=== PATIENT | female | born 1985 | race Caucasian/White ===

== ENCOUNTER → 2021-07-23 | Outpatient (REF) | payer SELFPAY | LOC: M SFHCADAM 16:07 | PROVIDERS: ATTEND Physician Assistant | DX: Z53.20 Procedure and treatment not carried out because of patient's decision for unspecified reasons (principal) ==

== ENCOUNTER → 2021-10-04 | Outpatient (REF) | payer OTHER ==
[2021-10-04 12:33] LABS: BASO % 0.6 % (0.0-1.0); EOS % 0.6 % (0.0-3.0); HEMATOCRIT 42.4 % (36.0-47.0); LYMPH # 1.1 10^3/uL (1.5-5.0); LYMPH % 15.7 % (24.0-44.0); MEAN CORPUSCULAR HEMOGLOBIN 27.3 pg (27.0-33.0); MEAN CORPUSCULAR VOLUME 82.7 fl (80.0-96.0); MONO # 0.7 10^3/uL (0.0-0.8); MONO % 9.6 % (2.0-8.0); NEUTROPHILS # 5.3 10^3/uL (1.5-8.5); NEUTROPHILS % 73.2 % (36.0-66.0); PLATELET COUNT, AUTOMATED 275 10^3/uL (150-450); RED BLOOD COUNT 5.13 10^6/uL (4.00-5.40); WHITE BLOOD COUNT 7.2 10^3/uL (4.0-10.0)
[2021-10-04 15:24] LABS: ALT/SGPT 33 U/L (12-78); BILIRUBIN,TOTAL 0.2 MG/DL (0.2-1.0); BLOOD UREA NITROGEN 14 MG/DL (7-18); CALCIUM LEVEL 9.5 MG/DL (8.5-10.1); CARBON DIOXIDE LEVEL 26 MEQ/L (21-32); CHLORIDE LEVEL 106 MEQ/L (98-107); CHOLESTEROL LEVEL 123 MG/DL (<200); CREATININE FOR GFR 0.54 MG/DL (0.55-1.30); GLOMERULAR FILTRATION RATE > 60.0 (>60); GLUCOSE, FASTING 89 MG/DL (70-100); HDL CHOLESTEROL 41 MG/DL (>40); NON-HDL-C 82 MG/DL; POTASSIUM SERUM 4.4 MEQ/L (3.5-5.1); SODIUM LEVEL 137 MEQ/L (136-145); TRIGLYCERIDES LEVEL 78 MG/DL (<150)
[2021-10-04 15:25] LABS: ALBUMIN 4.3 GM/DL (3.2-5.2); FREE T4 0.95 NG/DL (0.76-1.46); LDL CHOLESTEROL 66 MG/DL (<100); THYROID STIMULATING HORMONE 0.521 uIU/ML (0.358-3.740); TOTAL PROTEIN 7.2 GM/DL (6.4-8.2)
[2021-10-05 09:47] LABS: TOTAL 25(OH) VITAMIN D 30.4 NG/ML (30.0-100.0)
== END ==
LOC: M SFHCADAM 09:42
PROVIDERS: ATTEND Physician Assistant Medical
DX: F41.9 Anxiety disorder, unspecified (principal); F32.0 Major depressive disorder, single episode, mild; Q85.01 Neurofibromatosis, type 1; F17.210 Nicotine dependence, cigarettes, uncomplicated; F51.04 Psychophysiologic insomnia

== ENCOUNTER → 2022-01-15 | Outpatient (CLI) | payer OTHER | LOC: M ADAMS 15:16 | PROVIDERS: ATTEND Physician Assistant Medical | DX: M54.9 Dorsalgia, unspecified (principal) ==

== ENCOUNTER → 2022-09-10 | Outpatient (REF) | payer OTHER | LOC: M SFHCADAM 13:23 | PROVIDERS: ATTEND Physician Assistant Medical | DX: R87.610 Atypical squamous cells of undetermined significance on cytologic smear of cervix (ASC-US) (principal); Z12.4 Encounter for screening for malignant neoplasm of cervix ==

== ENCOUNTER → 2023-07-22 | Outpatient (CLI) | payer OTHER | LOC: M WHC 08:37 | PROVIDERS: ATTEND Physician Assistant Medical | DX: N63.0 Unspecified lump in unspecified breast (principal) ==

== ENCOUNTER 2023-08-25 09:45 | Emergency (ER) | payer OTHER ==
[~2023-08-25] VITALS: Ht 152.4 cm; Wt 56.5 kg
[2023-08-25] MEDS ORDERED: TRAZ1TAB12 PO (09:58)
[2023-08-25] MEDS ORDERED: NAPR-837 PO (09:59)
[2023-08-25] MEDS ORDERED: ALBU6.7H6 INH (10:00)
[2023-08-25 11:31] LABS: BASO # 0.1 10^3/uL (0.0-0.2); BASO % 0.4 % (0.0-1.0); EOS # 0.1 10^3/uL (0.0-0.5); EOS % 0.9 % (0.0-3.0); HEMATOCRIT 36.7 % (36.0-47.0); HEMOGLOBIN 12.5 g/dl (12.0-15.5); LYMPH # 1.6 10^3/uL (1.5-5.0); LYMPH % 13.1 % (24.0-44.0); MEAN CORPUSCULAR HGB CONC 34.1 g/dl (32.0-36.5); MEAN CORPUSCULAR VOLUME 82.3 fl (80.0-96.0); MONO # 0.7 10^3/uL (0.0-0.8); MONO % 6.1 % (2.0-8.0); NEUTROPHILS # 9.4 10^3/uL (1.5-8.5); NEUTROPHILS % 79.1 % (36.0-66.0); PLATELET COUNT, AUTOMATED 244 10^3/uL (150-450); RED BLOOD COUNT 4.46 10^6/uL (4.00-5.40); WHITE BLOOD COUNT 11.9 10^3/uL (4.0-10.0)
[2023-08-25 11:36] LABS: AMPHETAMINES LEVEL URINE NEGATIVE (NEGATIVE)
[2023-08-25 11:37] LABS: BARBITURATES URINE NEGATIVE (NEGATIVE); BENZODIAZEPINES URINE NEGATIVE (NEGATIVE); COCAINE METABOLITE URINE NEGATIVE (NEGATIVE); METHADONE URINE NEGATIVE (NEGATIVE); OPIATES URINE NEGATIVE (NEGATIVE); PHENCYCLIDINE URINE NEGATIVE (NEGATIVE)
[2023-08-25 12:03] LABS: LIPASE 20 U/L (12-53)
[2023-08-25 12:04] LABS: CK-MB VALUE MASS < 1.0 NG/ML (<3.6)
[2023-08-25 12:06] LABS: ALBUMIN 3.9 G/DL (3.2-5.2); ALKALINE PHOSPHATASE 44 U/L (46-116); ALT/SGPT 13 U/L (7.0-40); AST/SGOT 10 U/L (<34); BILIRUBIN,DIRECT 0.2 MG/DL (<0.4); BILIRUBIN,TOTAL 0.6 MG/DL (0.3-1.2); BLOOD UREA NITROGEN 8 MG/DL (9-23); CALCIUM LEVEL 10.1 MG/DL (8.5-10.1); CARBON DIOXIDE LEVEL 22 MMOL/L (20-31); CHLORIDE LEVEL 112 MMOL/L (98-107); CPK CREATINE PHOSPHOKINASE 64 U/L (34-145); CREATININE FOR GFR 0.54 MG/DL (0.55-1.30); GLOMERULAR FILTRATION RATE > 60.0 (>60); GLUCOSE, FASTING 91 MG/DL (60-100); MB/CK RELATIVE INDEX 1.56 (< OR =4); SODIUM LEVEL 140 MMOL/L (136-145); TOTAL PROTEIN 6.4 G/DL (5.7-8.2)
[2023-08-25 12:08] LABS: FREE T4 0.97 NG/DL (0.89-1.76); THYROID STIMULATING HORMONE 0.845 uIU/ML (0.55-4.78)
[2023-08-25 12:12] LABS: HCG, SERUM QUALITATIVE NEGATIVE (NEGATIVE)
[2023-08-25 12:34] LABS: CANNABINOIDS URINE POSITIVE (NEGATIVE)
[2023-08-25] MEDS ORDERED: ISOVUE-370 76% 100ML VIAL As Ordered ONE (13:02)
[2023-08-25 14:51] VITALS: BP 117/66; TEMP 97.6; O2SAT 98
== END 2023-08-25 14:54 | disposition home or self-care (01) ==
LOC: M ED 09:45
DX: F43.0 Acute stress reaction (principal); R07.9 Chest pain, unspecified; J45.909 Unspecified asthma, uncomplicated; F17.200 Nicotine dependence, unspecified, uncomplicated; F12.10 Cannabis abuse, uncomplicated; F10.10 Alcohol abuse, uncomplicated; Z79.52 Long term (current) use of systemic steroids; Z79.899 Other long term (current) drug therapy
CPT/HCPCS: 36415; 71045; 71275; 80048; 80076; 80307; 82550; 82553; 83690; 84439; 84443; 84703; 85025; 93005; 93041; 94760; 99285; Q9967

== ENCOUNTER → 2024-05-18 | Outpatient (REF) | payer OTHER ==
[~2024-05-18] MED LIST: ALBU6.7H6 INH; NAPR-837 PO; TRAZ1TAB12 PO
[2024-05-18 18:02] LABS: BASO % 0.3 % (0.0-1.0); EOS # 0.1 10^3/uL (0.0-0.5); HEMATOCRIT 37.8 % (36.0-47.0); HEMOGLOBIN 12.4 g/dl (12.0-15.5); LYMPH # 2.1 10^3/uL (1.5-5.0); LYMPH % 23.9 % (24.0-44.0); MEAN CORPUSCULAR HGB CONC 32.8 g/dl (32.0-36.5); MEAN CORPUSCULAR VOLUME 82.4 fl (80.0-96.0); MONO # 0.6 10^3/uL (0.0-0.8); MONO % 7.2 % (2.0-8.0); NEUTROPHILS # 5.8 10^3/uL (1.5-8.5); NEUTROPHILS % 67.3 % (36.0-66.0); PLATELET COUNT, AUTOMATED 342 10^3/uL (150-450); RED BLOOD COUNT 4.59 10^6/uL (4.00-5.40); WHITE BLOOD COUNT 8.6 10^3/uL (4.0-10.0)
[2024-05-18 18:29] LABS: ALBUMIN 4.3 G/DL (3.2-5.2); ALKALINE PHOSPHATASE 66 U/L (46-116); ALT/SGPT 14 U/L (7.0-40); AST/SGOT 8 U/L (<34); BILIRUBIN,TOTAL 0.6 MG/DL (0.3-1.2); BLOOD UREA NITROGEN 8 MG/DL (9-23); CALCIUM LEVEL 11.3 MG/DL (8.5-10.1); CARBON DIOXIDE LEVEL 26 MMOL/L (20-31); CHLORIDE LEVEL 110 MMOL/L (98-107); CREATININE FOR GFR 0.66 MG/DL (0.55-1.30); GLOMERULAR FILTRATION RATE > 60.0 (>60); GLUCOSE, FASTING 107 MG/DL (60-100); POTASSIUM SERUM 5.2 MMOL/L (3.5-5.1); SODIUM LEVEL 140 MMOL/L (136-145); TOTAL PROTEIN 7.5 G/DL (5.7-8.2)
[2024-05-18 18:30] LABS: FREE T4 1.11 NG/DL (0.89-1.76)
[2024-05-18 18:31] LABS: TOTAL 25(OH) VITAMIN D 34.4 NG/ML (20.0-100.0)
== END ==
LOC: M SFHCADAM 14:58
PROVIDERS: ATTEND Physician Assistant Medical
DX: F33.2 Major depressive disorder, recurrent severe without psychotic features (principal); F41.1 Generalized anxiety disorder

== ENCOUNTER → 2024-05-21 | Outpatient (CLI) | payer OTHER ==
[2024-05-21 11:52] LABS: IONIZED CALCIUM 5.3 MG/DL (4.5-5.3)
[2024-05-21 12:33] LABS: PTH INTACT 110.3 PG/ML (18.5-88.0)
[2024-05-21 12:35] LABS: TOTAL 25(OH) VITAMIN D 34.5 NG/ML (20.0-100.0)
[2024-05-23 02:17] LABS: PROTEIN, TOTAL SO 7.2 g/dL (6.1-8.1)
[2024-05-25 06:37] LABS: ALBUMIN SO 4.5 g/dL (3.8-4.8); ALPHA 1 GLOBULINS SO 0.3 g/dL (0.2-0.3); ALPHA 2 GLOBULINS SO 0.6 g/dL (0.5-0.9); BETA 2 GLOBULIN SO 0.2 g/dL (0.2-0.5); BETA GLOBULIN SO 0.5 g/dL (0.4-0.6); GAMMA GLOBULINS SO 1.1 g/dL (0.8-1.7)
== END ==
LOC: M LAB 11:23
PROVIDERS: ATTEND Physician Assistant Medical
DX: E83.52 Hypercalcemia (principal)

== ENCOUNTER → 2024-05-21 | Outpatient (REF) | payer OTHER | LOC: M SFHCADAM 10:46 | PROVIDERS: ATTEND Physician Assistant Medical | DX: E83.52 Hypercalcemia (principal) ==

== ENCOUNTER → 2024-05-27 | Outpatient (REF) | payer OTHER ==
[2024-05-27 16:16] LABS: CALCIUM, URINE 9.4 MG/DL
[2024-05-27 16:42] LABS: CALCIUM, 24 HOUR URINE 211.5 MG/24HR (42-353); TOTAL VOLUME, URINE 2250 ML
== END ==
LOC: M SFHCADAM 12:43
PROVIDERS: ATTEND Physician Assistant Medical
DX: E83.52 Hypercalcemia (principal)

== ENCOUNTER → 2024-09-20 | Outpatient (REF) | payer OTHER ==
[2024-09-20 17:32] LABS: HEMATOCRIT 35.5 % (36.0-47.0); MEAN CORPUSCULAR HEMOGLOBIN 24.3 pg (27.0-33.0); MEAN CORPUSCULAR VOLUME 78.5 fl (80.0-96.0); PLATELET COUNT, AUTOMATED 281 10^3/uL (150-450); RED BLOOD COUNT 4.52 10^6/uL (4.00-5.40)
[2024-09-20 18:00] LABS: FERRITIN 4.7 NG/ML (7.3-270.7); FOLATE 8.1 NG/ML (>5.4)
== END ==
LOC: M SFHCADAM 13:18
PROVIDERS: ATTEND Physician Assistant Medical
DX: G25.81 Restless legs syndrome (principal)

== ENCOUNTER → 2024-11-29 | Outpatient (CLI) | payer OTHER | LOC: M RAD 12:11 | PROVIDERS: ATTEND Physician Assistant Medical | DX: R30.0 Dysuria (principal); R31.29 Other microscopic hematuria; R10.9 Unspecified abdominal pain; M54.50 Low back pain, unspecified ==

== ENCOUNTER → 2024-11-29 | Outpatient (REF) | payer OTHER ==
[2024-11-29 17:25] LABS: BLOOD UREA NITROGEN 10 MG/DL (9-23); CALCIUM LEVEL 10.6 MG/DL (8.5-10.1); CARBON DIOXIDE LEVEL 25 MMOL/L (20-31); CHLORIDE LEVEL 106 MMOL/L (98-107); GLOMERULAR FILTRATION RATE > 60.0 (>60); GLUCOSE, FASTING 106 MG/DL (60-100); POTASSIUM SERUM 5.4 MMOL/L (3.5-5.1); SODIUM LEVEL 138 MMOL/L (136-145)
[2024-11-29 17:32] LABS: APPEARANCE, URINE HAZY (CLEAR); BACTERIA, URINE AUTO 1+ (NEGATIVE); BILIRUBIN, URINE AUTO NEGATIVE (NEGATIVE); BLOOD, URINE BLOOD NEGATIVE (NEGATIVE); COLOR, URINE YELLOW (YELLOW); GLUCOSE, URINE (UA) AUTO NEGATIVE (NEGATIVE); KETONE, URINE AUTO NEGATIVE (NEGATIVE); LEUKOCYTE ESTERASE, URINE AUTO NEGATIVE (NEGATIVE); NITRITE, URINE AUTO NEGATIVE (NEGATIVE); PROTEIN, URINE AUTO NEGATIVE (NEGATIVE); RBC, URINE AUTO 1 /HPF (0-3); SPECIFIC GRAVITY URINE AUTO 1.011 (1.002-1.035); SQUAMOUS EPITHELIAL CELL UR AU 4 /HPF (0-6); UROBILINOGEN, URINE AUTO 0.2 mg/dL (0.0-2.0); WBC, URINE AUTO 1 /HPF (0-3)
== END ==
LOC: M SFHCADAM 11:12
PROVIDERS: ATTEND Physician Assistant Medical
DX: R30.0 Dysuria (principal); R10.9 Unspecified abdominal pain

== ENCOUNTER → 2024-12-10 | Outpatient (CLI) | payer OTHER | LOC: M RAD 12:32 | PROVIDERS: ATTEND Physician Assistant Medical | DX: R93.5 Abnormal findings on diagnostic imaging of other abdominal regions, including retroperitoneum (principal) ==

== ENCOUNTER → 2024-12-21 | Outpatient (REF) | payer OTHER ==
[2024-12-21 17:19] LABS: HEMATOCRIT 39.2 % (36.0-47.0); HEMOGLOBIN 13.3 g/dl (12.0-15.5); MEAN CORPUSCULAR HEMOGLOBIN 29.1 pg (27.0-33.0); MEAN CORPUSCULAR HGB CONC 33.9 g/dl (32.0-36.5); MEAN CORPUSCULAR VOLUME 85.8 fl (80.0-96.0); PLATELET COUNT, AUTOMATED 243 10^3/uL (150-450); RED BLOOD COUNT 4.57 10^6/uL (4.00-5.40); WHITE BLOOD COUNT 9.3 10^3/uL (4.0-10.0)
[2024-12-21 17:55] LABS: FERRITIN 6.1 NG/ML (7.3-270.7)
[2024-12-21 17:56] LABS: PERCENT SATURATION 13.5 % (13.2-45.0)
== END ==
LOC: M SFHCADAM 14:11
PROVIDERS: ATTEND Physician Assistant Medical
DX: D50.8 Other iron deficiency anemias (principal)

== ENCOUNTER → 2025-06-08 | Outpatient (REF) | payer OTHER ==
[2025-06-08 15:21] LABS: CALCIUM LEVEL 10.3 MG/DL (8.5-10.1); CARBON DIOXIDE LEVEL 25 MMOL/L (20-31); CHLORIDE LEVEL 108 MMOL/L (98-107); CREATININE FOR GFR 0.65 MG/DL (0.55-1.30); GLOMERULAR FILTRATION RATE > 90.0 (>60); PHOSPHORUS LEVEL 1.9 MG/DL (2.5-4.9); POTASSIUM SERUM 5.6 MMOL/L (3.5-5.1); PTH INTACT 96.6 PG/ML (18.5-88.0); SODIUM LEVEL 138 MMOL/L (136-145)
[2025-06-08 15:24] LABS: TOTAL 25(OH) VITAMIN D 35.6 NG/ML (20.0-100.0)
== END ==
LOC: M LABDRWAD 12:55
PROVIDERS: ATTEND Nurse Practitioner Family
DX: E21.0 Primary hyperparathyroidism (principal)

== ENCOUNTER → 2025-07-15 | Outpatient (CLI) | payer OTHER | LOC: M RAD 07:48 | PROVIDERS: ATTEND Nurse Practitioner Family | DX: E21.0 Primary hyperparathyroidism (principal) | CPT/HCPCS: 78070; 78803; A9500 ==